=== PATIENT | female | born 1985 | race Caucasian/White ===

== ENCOUNTER 2023-05-11 15:36 | Emergency (ER) | payer OTHER ==
[2023-05-11 19:10] LABS: Absolute Lymphocytes (CBC) 2.5 K/uL (0.7-4.9); Hematocrit 44.4 % (36.0-45.0); Lymphocytes % 27.2 % (15.3-44.8); MCV 87.8 fL (80-100); MPV 9.5 fL (7.6-11.3); Platelets 219 thou/uL (152-406); RBC Red Blood Cell Count 5.05 M/uL (3.86-4.86)
[2023-05-11] MEDS ORDERED: KETOROLAC 30 MG/ML INJ ONE (19:16)
[2023-05-11] MEDS ORDERED: NA CHLORIDE 0.9% 1,000 ML ONE (19:17)
[2023-05-11] MEDS ORDERED: ONDANSETRON 4 MG/2 ML VIAL ONE (19:17)
[2023-05-11 19:21] LABS: Urine Bacteria <20 /HPF (<20); Urine Bilirubin NEGATIVE (Negative); Urine Blood Trace (Negative); Urine Clarity Extremely Turbid (Clear); Urine Color Yellow (Yellow); Urine Glucose NEGATIVE (Negative); Urine Mucus 1+ /HPF (None Seen); Urine Protein 1+ (Negative); Urine RBC >50 /HPF (None Seen); Urine Urobilinogen Normal (Normal); Urine pH 5.5 (5.0-7.0)
[2023-05-11 19:23] LABS: Albumin 3.2 g/dL (3.4-5.0); Bilirubin Total 0.3 mg/dL (0.2-1.0); Protein, Total 7.3 g/dL (6.4-8.2)
--- NOTE | 2023-05-11 20:16 | RAD REPORT ---
EXAM DESCRIPTION: CTAbdomen Pelvis W Contrast - 05/11/2023 8:07 pm CLINICAL HISTORY: ABD PAIN COMPARISON: No comparisons TECHNIQUE: CT of the abdomen and pelvis was performed. All CT scans are performed using dose optimization technique as appropriate and may include automated exposure control or mA/KV adjustment according to patient size. FINDINGS: Lower chest: No acute abnormality. Liver: No acute abnormality or suspicious lesions. Biliary: No biliary ductal dilatation. Stomach: No significant focal abnormality. Duodenum: No significant focal abnormality. Pancreas: No significant abnormality. Spleen: No significant abnormality. Adrenal: No suspicious lesions. Kidney/ureter: No hydronephrosis. No renal calculi. Retroperitoneum: No retroperitoneal adenopathy. Vascular: No aneurysm. Bowel: No significant focal abnormality. Normal appendix Peritoneum: No ascites or free air. Bladder: Grossly unremarkable. Reproductive: No adnexal masses. IUD . Bones: No acute fracture. Other: n/a IMPRESSION: No acute intra-abdominal or pelvic finding. Normal appendix.
--- NOTE | 2023-05-11 20:42 | ER ---
Nurse's Notes [facility] Name: Camryn Arteaga Age: 38 yrs Sex: Female : 1985 Arrival Date: 05/11/2023 Time: 15:36 Bed 5 Private MD: Diagnosis: Lower abdominal pain, unspecified;UTI/ Urinary tract infection, site not specified Presentation: 05/11 16:10 Chief complaint: Had food poisoning last weekend, c/o N/V/D, periumbilical and RLQ pain hb 3/10. Seen by PCP yesterday, was urged to come to r/o appendicitis. Coronavirus screen: At this time, the client does not indicate any symptoms associated with coronavirus-19. Ebola Screen: No symptoms or risks identified at this time. Initial Sepsis Screen: Does the patient meet any 2 criteria? No. Patient's initial sepsis screen is negative. Does the patient have a suspected source of infection? No. Patient's initial sepsis screen is negative. Risk Assessment: Do you want to hurt yourself or someone else? Patient reports no desire to harm self or others. Onset of symptoms was May 05, 2023. 16:10 Method Of Arrival: Ambulatory hb 16:10 Acuity: ANAND 3 hb Historical: - Allergies: 16:12 PENICILLINS; hb - Home Meds: 16:12 None [Active]; hb - PMHx: 16:16 Diverticulitis; hb - PSHx: 16:12 None; hb - Immunization history:: Adult Immunizations up to date. - Social history:: Smoking status: Patient denies any tobacco usage or history of. Screenin:07 [facility] ED Fall Risk Assessment (Adult) History of falling in the last 3 months, lg3 including since admission No falls in past 3 months (0 pts). Abuse screen: Denies threats or abuse. Denies injuries from another. Nutritional screening: No deficits noted. Tuberculosis screening: No symptoms or risk factors identified. Assessment: 19:07 General: Appears in no apparent distress. comfortable, Behavior is calm, cooperative. lg3 Pain: Complains of pain in umbilical area Pain radiates to right lower quadrant. Neuro: No deficits noted. Obrien Agitation-Sedation Scale (RASS): 0 - Alert and Calm Level of Consciousness is awake, alert, obeys commands, Oriented to person, place, time, situation. Cardiovascular: No deficits noted. Denies chest pain, shortness of breath, Capillary refill < 3 seconds Clubbing of nail beds is absent JVD is absent Patient's skin is warm and dry. Respiratory: No deficits noted. Airway is patent Respiratory effort is even, unlabored, Respiratory pattern is regular, symmetrical. GI: Abdomen is round non-distended, obese, Bowel sounds present X 4 quads. Abd is soft X 4 quads Abdomen is tender to palpation in umbilical area and right lower quadrant. : No deficits noted. No signs and/or symptoms were reported regarding the genitourinary system. EENT: No deficits noted. No signs and/or symptoms were reported regarding the EENT system. Derm: No deficits noted. No signs and/or symptoms reported regarding the dermatologic system. Skin is intact, is healthy with good turgor, Skin is dry, Skin is normal, Skin temperature is warm. Musculoskeletal: No deficits noted. No signs and/or symptoms reported regarding the musculoskeletal system. Circulation, motion, and sensation intact. Range of motion: intact in all extremities. 20:09 Reassessment: Patient appears in no apparent distress at this time. No changes from lg3 previously documented assessment. Patient and/or family updated on plan of care and expected duration. Pain level reassessed. Patient is alert, oriented x 3, equal unlabored respirations, skin warm/dry/pink. Vital Signs: 16:10 BP 133 / 103; Pulse 92; Resp 18; Temp 98.8(TE); Pulse Ox 100% on R/A; Weight 94.8 kg; hb Height 5 ft. 10 in. ; Pain 3/10; 19:24 BP 126 / 74; Pulse 84; Resp 18 S; Pulse Ox 100% on R/A; lg3 20:59 BP 127 / 81; Pulse 80; Resp 17 S; Pulse Ox 100% on R/A; lg3 16:10 Body Mass Index 29.99 (94.80 kg, 177.8 cm) hb 16:10 Pain Scale: Adult hb ED Course: 15:40 Patient arrived in ED. im 16:03 Gabo Saeed PA is PHCP. cp 16:03 Isak Brooks MD is Attending Physician. cp 16:12 Triage completed. hb 16:13 Arm band placed on. hb 19:01 CBC with Diff Sent. lg3 19:01 CMP Sent. lg3 19:01 Lipase Sent. lg3 19:04 Brice Scott MD is Attending Physician. cp 19:07 Patient has correct armband on for positive identification. Placed in gown. Bed in low lg3 position. Call light in reach. Side rails up X 1. Client placed on continuous cardiac and pulse oximetry monitoring. NIBP monitoring applied. ekg monitor on. Door closed. Noise minimized. Warm blanket given. Family accompanied patient. 19:07 Inserted saline lock: 20 gauge in left forearm, using aseptic technique. Blood lg3 collected. Patient maintains SpO2 saturation greater than 95% on room air. 19:10 Betty Iniguez, MISSAEL is Primary Nurse. lg3 19:10 Test, Urine Sent. lg3 19:10 Urinalysis w/ reflexes Sent. lg3 20:09 CT Abd/Pelvis - IV Contrast Only In Process Unspecified. EDMS 21:00 No provider procedures requiring assistance completed. IV discontinued, intact, lg3 bleeding controlled, No redness/swelling at site. Pressure dressing applied. Administered Medications: 19:10 Drug: NS 0.9% IV 1000 ml IV at 1 bolus Per protocol; 1000 mL bolus Route: IV; Rate: 1 lg3 bolus; Site: left forearm; 20:59 Follow up: Response: No adverse reaction; IV Status: Completed infusion; IV Intake: lg3 1000ml 19:10 Drug: TORadol - Ketorolac IVP 15 mg IVP once Route: IVP; Site: left forearm; lg3 20:59 Follow up: Response: No adverse reaction; Marked relief of symptoms lg3 19:10 Drug: Ondansetron IVP 4 mg IVP once; over 2 minutes Route: IVP; Site: left forearm; lg3 20:59 Follow up: Response: No adverse reaction; Marked relief of symptoms lg3 20:50 Drug: Rocephin IV 1 grams IV at calculated rate once; Given slow IV push per pharmacy lg3 instructions Route: IV; Rate: calculated rate; Site: left forearm; 20:59 Follow up: Response: No adverse reaction; IV Status: Completed infusion; IV Intake: [id number] Medication: 21:00 VIS not applicable for this client. lg3 Intake: 20:59 IV: 10ml; Total: 10ml. lg3 20:59 IV: 1000ml; Total: 1010ml. lg3 Outcome: 20:42 Discharge ordered by . cp 21:00 Discharged to home ambulatory, with family, lg3 21:00 Condition: stable 21:00 Discharge instructions given to patient, Instructed on discharge instructions, follow up and referral plans. medication usage, Demonstrated understanding of instructions, follow-up care, medications, Prescriptions given X 2, 21:00 Patient left the ED. lg3 Signatures: Dispatcher [employer] EDMS Gabo Saeed PA PA cp Baxter, Heather, RN RN Betty Iniguez RN RN lg3 Sherin Correia Corrections: (The following items were deleted from the chart) 16:14 16:10 Chief complaint: Had food poisoning last weekend, c/o N/V/D, periumbilical and hb RLQ pain 09/21 hb 16:17 16:12 PMHx: None; hb hb
--- NOTE | 2023-05-11 20:42 | EDPHYS ---
Physician Documentation [facility] Name: Camryn Arteaga Age: 38 yrs Sex: Female : 1985 Arrival Date: 05/11/2023 Time: 15:36 Bed 5 Private MD: ED Physician Brice Scott HPI: 05/11 17:00 This 38 yrs old Female presents to ER via Ambulatory with complaints of Abdominal Pain, cp Vomiting/Diarrhea, Fatigue, Headache. 17:00 The patient presents with abdominal pain in the lower abdomen. cp 17:00 Onset: The symptoms/episode began/occurred 5 day(s) ago. The symptoms do not radiate. cp Associated signs and symptoms: Pertinent positives: nausea and vomiting, diarrhea, Pertinent negatives: constipation, fever, hematuria, vaginal discharge. The symptoms are described as waxing/waning. Historical: - Allergies: 16:12 PENICILLINS; hb - Home Meds: 16:12 None [Active]; hb - PMHx: 16:16 Diverticulitis; hb - PSHx: 16:12 None; hb - Immunization history:: Adult Immunizations up to date. - Social history:: Smoking status: Patient denies any tobacco usage or history of. ROS: 17:05 Constitutional: Negative for body aches, chills, fever, poor PO intake, cp 17:05 Abdomen/GI: Positive for abdominal pain, vomiting, diarrhea, Negative for constipation, cp 17:05 : Negative for hematuria, burning with urination, vaginal bleeding, vaginal discharge, 17:05 Cardiovascular: Negative for chest pain, palpitations, cp 17:05 Eyes: Negative for injury, pain, redness, and discharge, cp 17:05 ENT: Negative for drainage from ear(s), ear pain, sore throat, difficulty swallowing, difficulty handling secretions, 17:05 Respiratory: Negative for cough, shortness of breath, wheezing, 17:05 Back: Negative for pain at rest, pain with movement, 17:05 All other systems are negative, Exam: 17:10 Constitutional: The patient appears in no acute distress, alert, awake, non-toxic, well cp developed, well nourished, 17:10 Head/Face: Normocephalic, atraumatic. cp 17:10 Eyes: Periorbital structures: appear normal, Conjunctiva: normal, no exudate, no injection, Sclera: no appreciated abnormality, Lids and lashes: appear normal, bilaterally, 17:10 ENT: External ear(s): are unremarkable, Nose: is normal, Mouth: Lips: moist, Oral mucosa: moist, Posterior pharynx: is normal, airway is patent, no erythema, no exudate, 17:10 Chest/axilla: Inspection: normal, 17:10 Cardiovascular: Rate: normal, Rhythm: regular, 17:10 Respiratory: the patient does not display signs of respiratory distress, Respirations: normal, no use of accessory muscles, no retractions, labored breathing, is not present, Breath sounds: are clear throughout, no decreased breath sounds, no stridor, no wheezing, 17:10 Abdomen/GI: Inspection: abdomen appears normal, Bowel sounds: active, all quadrants, Palpation: soft, in all quadrants, mild abdominal tenderness, in the right lower quadrant and left lower quadrant, rebound tenderness, is not appreciated, involuntary guarding, is not appreciated, 17:10 Back: pain, is absent, ROM is normal, Vital Signs: 16:10 BP 133 / 103; Pulse 92; Resp 18; Temp 98.8(TE); Pulse Ox 100% on R/A; Weight 94.8 kg; hb Height 5 ft. 10 in. ; Pain 3/10; 19:24 BP 126 / 74; Pulse 84; Resp 18 S; Pulse Ox 100% on R/A; lg3 20:59 BP 127 / 81; Pulse 80; Resp 17 S; Pulse Ox 100% on R/A; lg3 16:10 Body Mass Index 29.99 (94.80 kg, 177.8 cm) hb 16:10 Pain Scale: Adult hb MDM: 16:15 Patient medically screened. 17:00 Differential diagnosis: appendicitis, Endometriosis, Ovarian Torsion, Pelvic cp Inflammatory Disease, Pyelonephritis, Ureterolithiasis, urinary tract infection. 20:41 Data reviewed: vital signs, nurses notes, lab test result(s), radiologic studies, CT cp scan. 20:41 I considered the following discharge prescriptions or medication management in the emergency department Medications were administered in the Emergency Department. See MAR. Counseling: I had a detailed discussion with the patient and/or guardian regarding the historical points, exam findings, and any diagnostic results supporting the discharge/admit diagnosis, lab results, radiology results, to return to the emergency department if symptoms worsen or persist or if there are any questions or concerns that arise at home. Special discussion: Based on the patient's Hx, exam, and Dx evaluation, there is no indication for emergent surgery or inpatient Tx. It is understood by the patient/guardian that if the Sx's persist or worsen they need to return immediately for re-evaluation. 05/11 16:39 Order name: CBC with Diff; Complete Time: 19:32 cp 05/11 19:32 Interpretation: Normal except: RBC 5.05; HGB 15.1. cp 05/11 16:39 Order name: CMP; Complete Time: 19:32 cp 05/11 19:33 Interpretation: Normal except: NA 135; CL 108; AST 12; CA 8.3; ALB 3.2; GLOB 4.1; A/G cp 0.8. 05/11 16:39 Order name: Lipase; Complete Time: 19:32 cp 05/11 16:39 Order name: Test, Urine; Complete Time: 19:32 cp 05/11 16:39 Order name: Urinalysis w/ reflexes; Complete Time: 19:32 cp 05/11 19:33 Interpretation: Reviewed. cp 05/11 16:39 Order name: CT Abd/Pelvis - IV Contrast Only; Complete Time: 20:29 cp 05/11 20:29 Interpretation: Report reviewed. cp 05/11 16:39 Order name: IV Saline Lock; Complete Time: 19:01 cp 05/11 16:39 Order name: Labs collected and sent; Complete Time: 19:01 cp Administered Medications: 19:10 Drug: NS 0.9% IV 1000 ml IV at 1 bolus Per protocol; 1000 mL bolus Route: IV; Rate: 1 lg3 bolus; Site: left forearm; 20:59 Follow up: Response: No adverse reaction; IV Status: Completed infusion; IV Intake: lg3 1000ml 19:10 Drug: TORadol - Ketorolac IVP 15 mg IVP once Route: IVP; Site: left forearm; lg3 20:59 Follow up: Response: No adverse reaction; Marked relief of symptoms lg3 19:10 Drug: Ondansetron IVP 4 mg IVP once; over 2 minutes Route: IVP; Site: left forearm; lg3 20:59 Follow up: Response: No adverse reaction; Marked relief of symptoms lg3 20:50 Drug: Rocephin IV 1 grams IV at calculated rate once; Given slow IV push per pharmacy lg3 instructions Route: IV; Rate: calculated rate; Site: left forearm; 20:59 Follow up: Response: No adverse reaction; IV Status: Completed infusion; IV Intake: [id number] Disposition: 21:30 Co-signature as Attending Physician, Brice Scott MD I reviewed the patient's care rt provided by the Advanced Practice Provider and agree with the diagnosis and treatment plan. Disposition Summary: 05/11/23 20:42 Discharge Ordered Notes: Location: Home cp Problem: new cp Symptoms: have improved cp Condition: Stable cp Diagnosis - Lower abdominal pain, unspecified cp - UTI/ Urinary tract infection, site not specified cp Followup: cp - With: Private Physician - When: 2 - 3 days - Reason: Recheck today's complaints Discharge Instructions: - Discharge Summary Sheet cp - Abdominal Pain, Adult cp - Urinary Tract Infection, Adult cp Forms: - Medication Reconciliation Form cp - Thank You Letter cp - Antibiotic Education cp - Prescription Opioid Use cp - Patient Portal Instructions cp - Leadership Thank You Letter cp Prescriptions: - Ibuprofen 800 mg Oral Tablet - take 1 tablet ORAL route every 8 hours As needed take with food; 30 tablet; cp Refills: 0, Product Selection Permitted - Macrobid 100 mg Oral Capsule - take 1 capsule ORAL route every 12 hours for 7 days; 14 capsule; Refills: 0, cp Product Selection Permitted Signatures: Dispatcher [employer] EDMT Gabo Saeed PA PA cp Liyah Willett RN RN Betty Iniguez RN RN lg3 Brice Scott MD MD rt Corrections: (The following items were deleted from the chart) 16:17 16:12 PMHx: None; [facility] 05/12 19:13 05/11 20:52 Musculoskeletal/extremity: Extremities: grossly normal except: noted in the cp right elbow: pain, swelling, tenderness, ROM: limited passive range of motion due to pain, in the right elbow, Pulses: noted to be 2+ in the right radial artery, the right hand and right arm Sensation intact. cp
[2023-05-11] MEDS ORDERED: CEFTRIAXONE 1000 MG/VIAL ONE (20:57)
[2023-05-11 21:18] VITALS: TEMP 98.8; O2SAT 100
[2023-05-11 21:20] VITALS: BP 127/81
== END 2023-05-11 21:00 | disposition home or self-care (01) ==
LOC: ER 15:36
DX: N39.0 Urinary tract infection, site not specified (principal); Z88.0 Allergy status to penicillin
CPT/HCPCS: 96361; 85025; 81001; 36415; 81025; 83690; 80053; 74177; 96375; 96374; 99285; Q9967; J2405; J7030; J0696